=== PATIENT | male | born 1965 ===

== ENCOUNTER 2017-12-27 07:00 | Emergency (ER) | payer OTHER ==
[2017-12-27 07:30] VITALS: TEMP 97
--- NOTE | 2017-12-27 07:51 | ED PDOC ---
Syncope/Near Syncope/Dizziness Time Seen by Provider: 12/27/17 07:36 Chief Complaint (Nursing): Dizziness/Lightheaded Chief Complaint (Provider): Dizziness/Lightheaded History Per: Patient History/Exam Limitations: no limitations Onset/Duration Of Symptoms: Days (x2) Current Symptoms Are (Timing): Still Present Additional Complaint(s): 52 year old male with medical history of thrombocytopenia, presents to the emergency department with a complaint of dizziness associated with room spinning ongoing for 2 days. Patient stated symptoms are exacerbated by head movements. He denied any chest pain, palpitations, headaches, loss of consciousness, focal weakness or numbness. PMD: none provided Past Medical History Reviewed: Historical Data, Nursing Documentation, Vital Signs Vital Signs: Last Vital Signs Temp 97 F L 12/27/17 07:28 Pulse 76 12/27/17 07:28 Resp 18 12/27/17 07:28 BP 147/92 H 12/27/17 07:28 Pulse Ox 96 12/27/17 07:28 - Medical History PMH: Denies: No Chronic Diseases Other PMH: thrombocytopenia - Surgical History Surgical History: No Surg Hx - Family History Family History: States: Unknown Family Hx - Social History Current smoker - smoking cessation education provided: No Ex-Smoker (has not smoked in the last 12 months): No Alcohol: Social Drugs: Denies - Home Medications Home Medications: Ambulatory Orders Medication Instructions Recorded Meclizine [Meclizine*] 25 mg PO Q8 #15 tab 12/27/17 - Allergies Allergies/Adverse Reactions: Allergies Allergy/AdvReac Type Severity Reaction Status Date / Time No Known Allergies Allergy Verified 12/27/17 07:28 Review of Systems ROS Statement: Except As Marked, All Systems Reviewed And Found Negative Cardiovascular: Negative for: Chest Pain, Palpitations Neurological: Positive for: Dizziness (room spinning). Negative for: Weakness ( focal), Numbness, Headache, Other (LOC) Physical Exam - Reviewed Nursing Documentation Reviewed: Yes Vital Signs Reviewed: Yes - Physical Exam Appears: Positive for: Non-toxic, No Acute Distress Eye Exam: Positive for: Normal appearance, EOMI, PERRL Cardiovascular/Chest: Positive for: Regular Rate, Rhythm, Chest Non Tender Respiratory: Positive for: Normal Breath Sounds. Negative for: Decreased Breath Sounds, Wheezing, Respiratory Distress Extremity: Positive for: Normal ROM (upper/lower). Negative for: Pedal Edema ( bilateral), Deformity (upper/lower) Neurologic/Psych: Positive for: Alert (x3), personnel representative II-XII (intact), Oriented. Negative for: Motor/Sensory Deficits, Aphasia - Laboratory Results Result Diagrams: 12/27/17 07:57 12/27/17 07:57 - ECG O2 Sat by Pulse Oximetry: 96 (RA) Pulse Ox Interpretation: Normal - Progress Re-evaluation Time: 09:17 Condition: Improved (No dizziness. Thrombocytopenia and LFTs stable) Medical Decision Making Medical Decision Making: Initial Impression: Dizziness Initial Plan: * EKG * CMP * CBC * Antivert 25mg PO Scribe Attestation: Documented by Melissa Smith, acting as a scribe for Pan Leung MD. Provider Scribe Attestation: All medical record entries made by the Scribe were at my direction and personally dictated by me. I have reviewed the chart and agree that the record accurately reflects my personal performance of the history, physical exam, medical decision making, and the department course for this patient. I have also personally directed, reviewed, and agree with the discharge instructions and disposition. Disposition - Clinical Impression Clinical Impression: Vertigo - Patient ED Disposition Is Patient to be Admitted: No Counseled Patient/Family Regarding: Studies Performed, Diagnosis, Need For Followup, Rx Given - Disposition Referrals: [facility] [Outside] Disposition: Routine/Home Disposition Time: 09:18 Condition: FAIR Prescriptions: Meclizine [Meclizine*] 25 mg PO Q8 #15 tab Instructions: Vertigo (a Type of Dizziness) Forms: [employer] (Hebrew) Print Language: OCCITAN
[2017-12-27 08:02] LABS: BASO % 0.9 % (0.0-2.0); EOS # 0.1 K/uL (0.0-0.7); HEMOGLOBIN 14.3 g/dL (12.0-18.0); LYMPH # 1.3 K/uL (1.0-4.3); LYMPH % 26.5 % (20.0-40.0); MEAN CELL VOLUME 99.9 fl (80.0-94.0); MEAN CORPUSCULAR HEMOGLOBIN 34.2 pg (27.0-31.0); MEAN CORPUSCULAR HGB CONC 34.3 g/dL (33.0-37.0); MEAN PLATELET VOLUME 10.2 fl (7.2-11.7); MONO # 0.5 K/uL (0.0-0.8); MONO % 10.9 % (0.0-10.0); NEUT # 2.9 K/uL (1.8-7.0); NEUT % 58.7 % (50.0-75.0); RBC 4.18 Mil/uL (4.40-5.90); RED CELL DISTRIBUTION WIDTH 15.2 % (11.5-14.5); WHITE BLOOD COUNT 4.9 K/uL (4.8-10.8)
[2017-12-27 08:15] LABS: ALB/GLOB RATIO 0.8 (1.0-2.1); ALBUMIN 3.2 g/dL (3.5-5.0); ALT/SGPT 91 U/L (21-72); AST/SGOT 107 U/L (17-59); BLOOD UREA NITROGEN 11 mg/dl (9-20); CALCIUM 8.3 mg/dL (8.4-10.2); GFR AFRICAN-AMERICAN > 60; GFR NON-AFRICAN AMERICAN > 60
[2017-12-27 09:13] VITALS: BP 136/83; PULSE 74; RESP 16
[2017-12-27 09:25] VITALS: O2SAT 98
--- NOTE | 2017-12-27 11:56 | CARD ---
APPROVED REPORT EKG Measurement Heart [id number] <Conclusion> Normal sinus rhythm Left axis deviation Abnormal ECG
== END 2017-12-27 09:25 | disposition home or self-care (01) ==
LOC: H.ER 07:00
DX: R42 Dizziness and giddiness (principal); D69.6 Thrombocytopenia, unspecified